=== PATIENT | female | born 1995 | race Caucasian/White ===

== ENCOUNTER 2017-01-13 05:26 | Day surgery (SDC) | payer BC, OTHER ==
[2017-01-11 11:17] LABS: APPEARANCE,URINE CLEAR; BILIRUBIN,URINE NEGATIVE (NEGATIVE); GLUCOSE, URINE NEGATIVE (NEGATIVE); KETONES,URINE NEGATIVE (NEGATIVE); LEUKOCYTE ESTERASE,URINE NEGATIVE (NEGATIVE); NITRITE,URINE NEGATIVE (NEGATIVE); PROTEIN,URINE NEGATIVE (NEGATIVE); URINE SPECIFIC GRAVITY 1.006; UROBILINOGEN,URINE NEGATIVE mg/dL (<2.0)
[2017-01-11 11:24] LABS: HEMATOCRIT 35.9 % (36.0-47.0); HEMOGLOBIN 12.3 g/dL (12.0-15.5); MEAN CORPUSCULAR HEMOGLOBIN 31.4 pg (27.0-33.4); MEAN CORPUSCULAR HGB CONC 34.2 g/dL (32.0-36.0); MEAN CORPUSCULAR VOLUME 92 fl (80-97); RED BLOOD COUNT 3.91 10^6/uL (3.72-5.28); RED CELL DISTRIBUTION WIDTH 12.9 % (11.5-14.0); WHITE BLOOD COUNT 9.2 10^3/uL (4.0-10.5)
[~2017-01-13 05:26] MED LIST: ACETAMINOPHEN 100 ML IV PRN; CLINDAMYCIN 900 MG/D5W RTU 50 ML IV PRN; GENTAMICIN SULFATE 120 MG in DEXTROSE 5%-WATER 100 ML IV PRN; LACTATED RINGERS 1000 ML IV PRN; LIDOCAINE 0.5% INJ-PF (5 MG/ML) 50 ML SDV SUBCUT PRN
[2017-01-13] MEDS ORDERED: BUPIVACAINE HCL 0.5%-EPI 1:200000 INJ/PF 30 ML VIAL ONE (06:41)
[2017-01-13] MEDS ORDERED: FENTANYL CITRATE INJ/PF 100 MCG/2 ML AMPUL ONE ×2 (07:01→08:32)
[2017-01-13] MEDS ORDERED: ONDANSETRON HCL INJ/PF 4 MG/2 ML SDV ONE ×2 (07:02→10:33)
[2017-01-13] MEDS ORDERED: MIDAZOLAM 2 MG/2 ML INJ ONE ×2 (07:02→08:52)
[2017-01-13] MEDS ORDERED: DEXAMETHASONE SOD PHOSPHATE INJ 4 MG/1 ML VIAL ONE (07:02)
[2017-01-13] MEDS ORDERED: PROPOFOL INJ 200 MG/20 ML VIAL IV ONE (07:02)
[2017-01-13] MEDS ORDERED: BUPIVACAINE INJ/PF LIPOSOME/PF 266 MG/20 ML SDV ONE (07:36)
[2017-01-13] MEDS ORDERED: DIPHENHYDRAMINE HCL 50 MG/ML VIAL IV PRN (07:57)
[2017-01-13] MEDS ORDERED: FENTANYL CITRATE INJ/PF 100 MCG/2 ML AMPUL IV PRN ×3 (07:57)
[2017-01-13] MEDS ORDERED: MEPERIDINE HCL/PF INJ 25 MG/1 ML DISP.SYRIN IV PRN (07:57)
[2017-01-13] MEDS ORDERED: MORPHINE SULFATE 10 MG/ML INJ IV PRN (07:57)
[2017-01-13] MEDS ORDERED: PROMETHAZINE HCL INJ 25 MG/1 ML VIAL IV PRN ×2 (07:57)
--- NOTE | 2017-01-13 09:03 | OPERATIVE REPORT E ---
Operative Report NAME: DASIA TOBIN : 1995 AGE: 22Y DATE OF SURGERY: 01/13/2017 ROOM: PREOPERATIVE DIAGNOSIS: VULVAR VESTIBULITIS REFRACTORY TO MEDICAL THERAPY. POSTOPERATIVE DIAGNOSIS: VULVAR VESTIBULITIS REFRACTORY TO MEDICAL THERAPY. OPERATION: Vulvar vestibulectomy. SURGEON: OBDULIO HAN M.D. ANESTHESIA: General via laryngeal mask. Local anesthetic injected with a mix of 20 mL of Exparel with 10 mL of Marcaine 0.5% with epinephrine, a total of 20 mL of this mixture was injected locally into the vulva underlying the dissection area. ESTIMATED BLOOD LOSS: 15 mL. FINDINGS: Today, there are no gross vulvar lesions. The area to be excised had previously been mapped at her preoperative visit based on pain to light touch. DESCRIPTION OF PROCEDURE: After discussing the risks, benefits and alternatives of the procedure and obtaining informed consent, the patient was taken to the operating room where her general anesthesia was achieved. She was positioned in the dorsal lithotomy position, prepped and draped in the usual standard fashion. Finney catheter was placed to keep the bladder drained. The hymenal ring remnants at 3 o'clock and 9 o'clock were grasped as this was the apex of the area where her pain had been. The area to be excised was injected underneath the surface with the Exparel and Marcaine mixture. Using a #15 blade, the area of hypersensitivity was excised. Bleeding sites were coagulated with cautery. The deep tissues were reapproximated with interrupted [id number] of 2-0 Vicryl. The mucosal surface was reapproximated with 3-0 Monocryl in a running fashion. An area of oozing on the left aspect of the incision was oversewn with a U stitch of 3-0 Monocryl as well. Excellent hemostasis was observed. A small amount of bruising had been noted at the time of injecting the Exparel, but that did not expand or extend during her procedure and there was no obvious hematoma. At the end of the procedure, all sponge, needle, lap, and instrument counts were correct x2. The patient was taken out of dorsal lithotomy position, the Finney as removed and the patient was taken to recovery in stable condition. DICTATING PHYSICIAN: OBDULIO HAN M.D. [id number] PHY#: [id number] ID: [id number] JOB#: [id number] ACCT: [id number] cc:OBDULIO HAN M.D. >
[2017-01-13] MEDS ORDERED: RINGERS SOLUTION,LACTATED 1,000 ML IV PRN (09:20)
[2017-01-13] MEDS ORDERED: HYDROMORPHONE HCL INJ/PF 2 MG/ML AMPULE IV PRN (09:30)
[2017-01-13] MEDS ORDERED: MIDAZOLAM 2 MG/2 ML INJ IV ONE (09:45)
[2017-01-13] MEDS ORDERED: OXYCODONE HCL IR 5 MG TABLET PO PRN ×2 (09:50)
[2017-01-13] MEDS ORDERED: BENZOCAINE/MENTHOL AEROSOL SPRAY 56 ML TOP PRN (10:15)
[2017-01-13] MEDS ORDERED: SIMETHICONE 80 MG TAB.CHEW PO ONE (10:30)
[2017-01-13 11:17] VITALS: BP 117/71
== END 2017-01-13 11:27 | disposition home or self-care (01) ==
LOC: OROUT 05:26
PROVIDERS: ATTEND Specialist
PROC: 0UTMXZZ Resection of Vulva, External Approach (ICD-10-PCS; principal; 2017-01-13 07:30)
DX: N94.810 Vulvar vestibulitis (principal); N90.0 Mild vulvar dysplasia; G43.909 Migraine, unspecified, not intractable, without status migrainosus; N89.8 Other specified noninflammatory disorders of vagina; Z79.899 Other long term (current) drug therapy; Z88.0 Allergy status to penicillin
CPT/HCPCS: 36415; 85027; 81025; 81001; 88305 ×2; 56625; J2250; J3490 ×2; J1100; J3010; J1580; J2405; J2704; C9290; 940